=== PATIENT | female | born 1970 | race Caucasian/White ===

== ENCOUNTER 2025-01-13 08:40 | Inpatient (IN) | payer OTHER ==
[~2025-01-13] VITALS: Ht 170.2 cm; Wt 58.1 kg
[2025-01-13] VITALS (17 sets, daily range): BP systolic 99–120; BP diastolic 50–82; TEMP 98; O2SAT 94–97
[2025-01-13 09:15] LABS: BASOPHILS # (AUTO) 0.2 K/UL (0.0-0.2); EOSINOPHILS % (AUTO) 0.1 % (0.0-7.0); HEMATOCRIT 46.3 % (31.2-41.9); HEMOGLOBIN 14.4 g/dL (10.9-14.3); LYMPHOCYTES # (AUTO) 0.9 K/uL (0.8-4.8); LYMPHOCYTES % (AUTO) 4.4 % (20.5-51.5); MEAN CORPUSCULAR HGB CONC 31 g/dL (32.3-35.6); MEAN CORPUSCULAR VOLUME 99.8 fL (75.5-95.3); MONOCYTES # (AUTO) 0.5 K/uL (0.1-1.30); MONOCYTES % (AUTO) 2.6 % (0.0-11.0); NEUTROPHILS % (AUTO) 91.9 % (38.5-71.5); PLATELET COUNT (AUTO) 377 K/uL (179-408); RED BLOOD CELL COUNT(AUTO) 4.63 MIL/uL (3.63-4.92); RED CELL DISTRIBUTION WIDTH 14.3 % (12.3-17.7); WHITE BLOOD COUNT (AUTO) 20.7 K/uL (3.8-11.8)
[2025-01-13] MEDS ORDERED: INSU100V28 (09:15)
[2025-01-13 09:29] LABS: ALANINE AMINOTRANSFERASE 18 U/L (14-59); ALKALINE PHOSPHATASE 128 U/L (50-136); ASPARTATE AMINOTRANSFERASE 13 U/L (15-37); BILIRUBIN,DIRECT 0.1 mg/dL (0.0-0.2); BILIRUBIN,TOTAL 0.5 mg/dL (0.2-1.0); CALCIUM 9.8 mg/dL (8.5-10.1); CARBON DIOXIDE 11 mmol/L (21-32); CHLORIDE 89 mmol/L (98-107); CREATININE 1.8 mg/dL (0.6-1.3); MAGNESIUM 2.1 mg/dL (1.8-2.4); POTASSIUM 5.8 mmol/L (3.5-5.1); SODIUM SERUM 130 mmol/L (136-145); TOTAL PROTEIN, SERUM 8.5 g/dL (6.4-8.2); UREA NITROGEN, BLOOD 37 mg/dL (7-18)
[2025-01-13 09:42] LABS: ABG BASE EXCESS -20.3 mmol/L (-2.0-3.0); ABG HCO3 6.2 mmol/L (21.0-28.0); ABG PCO2 18.1 mmHg (32.0-45.0); ABG PH 7.156 (7.350-7.450); ABG PO2 106.4 mmHg (83.0-108.0); ABG SITE LEFT RADIAL; ABG TOTAL HEMOGLOBIN 14.9 G/dL (12.0-16.0); AaDO2 96.6 mmHg; COHb 1.1 % (0.5-1.5); MetHb 0.2 % (0.0-1.5); O2Hb 95.6 % (94.0-98.0)
[2025-01-13 09:48] LABS: GLUCOSE 738 mg/dL (74-106); PHOSPHOROUS 8.1 mg/dL (2.5-4.9)
[2025-01-13] MEDS: IV NS 1000 ML 1,000 ML IV PRN ×2 (09:59→23:35)
[2025-01-13 10:04] LABS: DIFFERENTIAL COMMENT 1
[2025-01-13] MEDS ORDERED: INSULIN REGULAR, HUMAN 100 UNIT in IV NORMAL SALINE 100 ML IV PRN (10:15)
[2025-01-13 10:38] LABS: *BILIRUBIN,URIN NEGATIVE (NEGATIVE); *CLARITY,URINE CLEAR (CLEAR); *COLOR,URINE YELLOW (YELLOW); *KETONES,URINE 4+ (NEGATIVE); *PROTEIN,URINE 1+ (NEGATIVE); *UROBILINOGEN,URINE 0.2 E.U./dl (NORMAL); LEUKOCYTE ESTERASE ,URINE NEGATIVE (NEGATIVE); NITRITE, URINE NEGATIVE (NEGATIVE); UGLUCOSE 2+ (NEGATIVE)
[2025-01-13 10:52] LABS: *BLOOD, URINE TRACE (NEGATIVE); *URINE HCG, QUAL NEGATIVE (NEGATIVE)
[2025-01-13] MEDS: INSULIN REGULAR, HUMAN 100 UNITS in IV NORMAL SALINE 100 ML IV PRN (11:00)
[2025-01-13] MEDS ORDERED: PANTOPRAZOLE SODIUM 40 MG VIAL ONE (11:00)
[2025-01-13] MEDS ORDERED: METOCLOPRAMIDE HCL 10 MG/2 ML VIAL ONE (11:01)
[2025-01-13 11:09] LABS: CALCIUM 9.2 mg/dL (8.5-10.1); CREATININE 1.6 mg/dL (0.6-1.3); MAGNESIUM 2.1 mg/dL (1.8-2.4); POTASSIUM 5.6 mmol/L (3.5-5.1)
[2025-01-13] MEDS: BLOOD SUGAR DIAGNOSTIC 1 EACH STRIP VI SCH ×3 (11:23→21:00)
[2025-01-13] MEDS: METOCLOPRAMIDE HCL 10 MG/2 ML VIAL IV ONE (11:23)
[2025-01-13] MEDS: PANTOPRAZOLE SODIUM IV 40 MG in IV DEXTROSE 5% 100 ML IV ONE (11:23)
[2025-01-13] MEDS ORDERED: LORAZEPAM 2 MG/1 ML VIAL ONE (11:43)
[2025-01-13] MEDS ORDERED: REMEDY ESSENTIAL ZINC PASTE 113 GM TP PRN (11:45)
[2025-01-13] MEDS ORDERED: MAGNESIUM HYDROXIDE 30 ML LIQUID UDC PO PRN (11:45)
[2025-01-13] MEDS ORDERED: ONDANSETRON 4 MG/2 ML VIAL IV PRN (11:45)
[2025-01-13] MEDS: LORAZEPAM 2 MG/1 ML VIAL IV ONE (11:47)
[2025-01-13 12:41] LABS: BACTERIA,URINE FEW /HPF (NONE SEEN); RBC,URINE 0-3 /HPF (0-3); SQUAMOUS EPITHELIAL CELL,UR FEW /HPF (NONE SEEN); WBC,URINE 0-3 /HPF (0-3)
[2025-01-13 13:00] LABS: CALCIUM 8.6 mg/dL (8.5-10.1); CREATININE 1.5 mg/dL (0.6-1.3); MAGNESIUM 1.8 mg/dL (1.8-2.4); PHOSPHOROUS 4.5 mg/dL (2.5-4.9); POTASSIUM 4.9 mmol/L (3.5-5.1)
[2025-01-13 13:04] LABS: LYMPHOCYTES % (MANUAL) 6 % (20-40); MONOCYTES % (MANUAL) 3 % (2-10); NEUTROPHILS % (MANUAL) 91 % (42-75); PLATELET ESTIMATE ADEQUATE
[2025-01-13 13:08] LABS: ANISOCYTOSIS 1+
[2025-01-13 13:09] LABS: OVALOCYTES 1+; TEAR DROP CELLS 1+
[2025-01-13] MEDS: INSULIN REGULAR, HUMAN 100 UNIT in IV NORMAL SALINE 99 ML IV PRN (15:08)
[2025-01-13] MEDS ORDERED: INSULIN GLARGINE,HUM 300 UNITS/3 ML CARTRIDGE SQ ONE (17:15)
[2025-01-13] MEDS: INSULIN GLARGINE,HUM 300 UNITS/3 ML CARTRIDGE SQ SCH (17:23)
[2025-01-13] MEDS ORDERED: DEXTROSE 50% 50 ML DISP.SYRIN IV PRN (18:45)
[2025-01-13] MEDS: ENOXAPARIN SODIUM 40 MG/0.4 ML DISP.SYRIN SQ SCH (21:00)
[2025-01-13] MEDS: INSULIN REGULAR, HUMAN 300 UNITS/3 ML VIAL SQ PRN (23:30)
[2025-01-14] VITALS (22 sets, daily range): BP systolic 101–123; BP diastolic 45–73; TEMP 98.2–98.5; O2SAT 93–99
[2025-01-14 05:12] LABS: BASOPHILS # (AUTO) 0.3 K/UL (0.0-0.2); BASOPHILS % (AUTO) 2.2 % (0.0-2.0); EOSINOPHILS # (AUTO) 0.1 K/uL (0.0-0.7); EOSINOPHILS % (AUTO) 0.8 % (0.0-7.0); HEMATOCRIT 40.8 % (31.2-41.9); HEMOGLOBIN 13.3 g/dL (10.9-14.3); LYMPHOCYTES # (AUTO) 2.6 K/uL (0.8-4.8); LYMPHOCYTES % (AUTO) 21.9 % (20.5-51.5); MEAN CORPUSCULAR HEMOGLOBIN 30.6 uug (24.7-32.8); MEAN CORPUSCULAR HGB CONC 33 g/dL (32.3-35.6); MEAN CORPUSCULAR VOLUME 94.1 fL (75.5-95.3); MONOCYTES # (AUTO) 0.8 K/uL (0.1-1.30); NEUTROPHILS % (AUTO) 68.1 % (38.5-71.5); PLATELET COUNT (AUTO) 302 K/uL (179-408); RED BLOOD CELL COUNT(AUTO) 4.33 MIL/uL (3.63-4.92); RED CELL DISTRIBUTION WIDTH 13.3 % (12.3-17.7); WHITE BLOOD COUNT (AUTO) 11.8 K/uL (3.8-11.8)
[2025-01-14 05:13] LABS: DIFFERENTIAL COMMENT 1
[2025-01-14 05:33] LABS: CALCIUM 8.6 mg/dL (8.5-10.1); MAGNESIUM 1.9 mg/dL (1.8-2.4); PHOSPHOROUS 2.9 mg/dL (2.5-4.9); POTASSIUM 4.5 mmol/L (3.5-5.1)
[2025-01-14 05:38] LABS: THYROID STIMULATING HORMONE 2.523 mIU/mL (0.358-3.740)
[2025-01-14 05:55] LABS: BAND % (MANUAL) 1 % (0-10); EOSINOPHILS % (MANUAL) 1 % (0-8); LYMPHOCYTES % (MANUAL) 22 % (20-40); MONOCYTES % (MANUAL) 1 % (2-10); NEUTROPHILS % (MANUAL) 75 % (42-75); PLATELET ESTIMATE ADEQUATE
[2025-01-14] MEDS: ACETAMINOPHEN 325 MG TABLET PO PRN (09:07)
[2025-01-14] MEDS: PANTOPRAZOLE SODIUM 40 MG VIAL IV SCH (09:07)
[2025-01-14] MEDS: ALPRAZOLAM 0.5 MG TABLET PO ONE (09:10)
[2025-01-14] MEDS ORDERED: INSU100V28 SQ ×3 (12:38→17:48)
[2025-01-14] MEDS ORDERED: NPH,100V2 SUBCUT (12:43)
[2025-01-14] MEDS: INSULIN REGULAR, HUMAN 1000 UNIT/10 ML VIAL SQ PRN (13:01)
[2025-01-14 13:41] LABS: CALCIUM 7.9 mg/dL (8.5-10.1); CREATININE 1.1 mg/dL (0.6-1.3); POTASSIUM 4.3 mmol/L (3.5-5.1)
[2025-01-14] MEDS ORDERED: NPH,100V2 SQ (17:47)
[2025-01-15] MEDS: TRAZODONE 50 MG TABLET PO SCH (00:22)
[2025-01-15 00:35] VITALS: BP 119/69; TEMP 98; O2SAT 98
[2025-01-15] MEDS: PANTOPRAZOLE SODIUM 40 MG TABLET.DR PO SCH (06:37)
[2025-01-15 09:00] VITALS: BP 130/64; TEMP 98.6; O2SAT 96
[2025-01-15 11:28] VITALS: BP 130/65; TEMP 98.1; O2SAT 95
[2025-01-15] MEDS ORDERED: NPH,100V2 SQ (13:12)
[2025-01-15] MEDS ORDERED: INSU100V28 SQ (13:12)
[2025-01-15 13:52] LABS: CALCIUM 8.1 mg/dL (8.5-10.1); CREATININE 0.8 mg/dL (0.6-1.3); POTASSIUM 3.6 mmol/L (3.5-5.1)
[2025-01-15] MEDS: LORAZEPAM 1 MG TABLET PO ONE (18:05)
[2025-01-15 18:22] VITALS: BP 104/77; TEMP 98.1; O2SAT 96
[2025-01-15 19:05] VITALS: BP 112/66; TEMP 98; O2SAT 98
[2025-01-16 00:31] VITALS: BP 113/59; TEMP 98.2; O2SAT 100
[2025-01-16] MEDS: BENZONATATE 100 MG CAPSULE PO SCH (04:06)
[2025-01-16 05:16] VITALS: BP 138/63; TEMP 97.7; O2SAT 97
[2025-01-16 07:30] VITALS: BP 119/70; TEMP 98.3; O2SAT 98
[2025-01-16 11:31] VITALS: BP 119/64; TEMP 97.3; O2SAT 98
[2025-01-16 13:24] LABS: CALCIUM 8.1 mg/dL (8.5-10.1); CREATININE 0.8 mg/dL (0.6-1.3); POTASSIUM 3.9 mmol/L (3.5-5.1)
[2025-01-16] MEDS: LORAZEPAM 1 MG TABLET PO ONE (13:40)
[2025-01-16 15:34] VITALS: BP 111/72; TEMP 97.7; O2SAT 95
[2025-01-16 21:20] VITALS: BP 109/72; TEMP 98.8; O2SAT 98
[2025-01-17 00:34] VITALS: TEMP 98
[2025-01-17] MEDS: GUAIFENESIN/D-METHORPHAN 10 ML UDC (DIABETIC FORMULA) PO PRN (02:46)
[2025-01-17 03:54] VITALS: TEMP 98.7
[2025-01-17 07:36] VITALS: BP 138/64; TEMP 97.8; O2SAT 97
[2025-01-17] MEDS: LORAZEPAM 1 MG TABLET PO ONE (08:24)
[2025-01-17] MEDS ORDERED: LORAZEPAM 1 MG TABLET PO PRN (09:45)
[2025-01-17 11:17] VITALS: BP 131/66; TEMP 97.8; O2SAT 100
== END 2025-01-17 13:15 | disposition home or self-care (01) | DRG 420 ==
LOC: ER 08:40 → TRANSITION 12:22 → ICU IN 18:50 → CCU 19:24 → TELE3 01-14 06:40 → MEDSURG3 01-17 12:24
PROVIDERS: ADMIT Student in an Organized Health Care Education/Training Program; ATTEND Student in an Organized Health Care Education/Training Program
DX: E10.10 Type 1 diabetes mellitus with ketoacidosis without coma (principal); N17.0 Acute kidney failure with tubular necrosis; T38.3X6A Underdosing of insulin and oral hypoglycemic [antidiabetic] drugs, initial encounter; E87.5 Hyperkalemia; Z91.141 Patient's other noncompliance with medication regimen due to financial hardship; Z79.4 Long term (current) use of insulin; Y92.89 Other specified places as the place of occurrence of the external cause; F17.210 Nicotine dependence, cigarettes, uncomplicated; E83.39 Other disorders of phosphorus metabolism; Z56.0 Unemployment, unspecified; E86.9 Volume depletion, unspecified; F41.9 Anxiety disorder, unspecified; F32.A Depression, unspecified
CPT/HCPCS: 36415; 36600; 71045; 82803; 83605; 83690; 83735; 84100; 84443; 84484; 84703; 85025; 87040; 87086; A4606; A4663; G0378; J1650; J1815; J2060; J2470; J2765; J7040